=== PATIENT | female | born 1960 | race Caucasian/White ===

== ENCOUNTER 2023-08-31 13:20 | Outpatient (CLI) | payer MEDICARE, BC | END 2023-08-31 13:21 | disposition home or self-care (01) | LOC: BICMAMMO 13:20 | PROVIDERS: ATTEND Family Medicine | DX: Z12.31 Encounter for screening mammogram for malignant neoplasm of breast (principal) | CPT/HCPCS: 77063; 77067 ==

== ENCOUNTER 2023-11-01 08:57 | Outpatient (CLI) | payer MEDICARE | END 2023-11-01 08:58 | disposition home or self-care (01) | LOC: BICMAMMO 08:57 | PROVIDERS: ATTEND Family Medicine | DX: Z13.820 Encounter for screening for osteoporosis (principal); M85.88 Other specified disorders of bone density and structure, other site | CPT/HCPCS: 77080 ==